=== PATIENT | female | born 1960 | race Caucasian/White ===

== ENCOUNTER → 2018-03-07 | Day surgery (SDC) | payer OTHER ==
[2018-03-02 09:52] VITALS: BMI 35.8
--- NOTE | 2018-03-05 13:19 | HP ---
DATE OF EXAM: 03/05/2018 REASON FOR ADMISSION: Left heart catheterization possible angioplasty, new onset of angina. HISTORY OF PRESENT ILLNESS: A 57-year-old female with past medical history significant for obesity, hypertension, hyperlipidemia, and diabetes. A stress test in 08/2017 was negative, but the patient complained of on walking, she developed angina, tightness in the throat and bilateral heaviness in the chest with minimal exertion and relieved by taking rest or taking sublingual nitroglycerin. Initially, the insurance refused, but on re-appealing insurance approved for the cardiac catheterization. PAST MEDICAL HISTORY: Significant for obesity, hypertension, and hyperlipidemia. SOCIAL HISTORY: Denies any smoking; denies any history of alcohol abuse. CURRENT MEDICATIONS: The patient is taking; Plavix 75 mg daily, metoprolol 200 mg daily, vitamin D2 50,000 units daily, Synthroid 200 mcg daily, glimepiride 4 mg daily, Januvia 25 mg daily, and lovastatin 80 mg daily. ALLERGIES: ALLERGY TO IODINE, ALLERGY TO AMOXICILLIN, ALLERGY TO CEPHALEXIN, AND ALLERGY TO POTASSIUM CLAVULANATE. RECENT CARDIAC WORKUP FOLLOWS: The patient had a stress test in that was essentially normal. Myocardial perfusion study, but the patient developed angina later on. REVIEW OF SYSTEMS: As per HPI. PHYSICAL EXAMINATION: As follows; VITAL SIGNS: Height of the patient 5 feet 2 inches, weight of the patient 196 pounds, body mass index 36 kg/m2, heart rate 62, and blood pressure 136/86. HEENT: PERRLA. Extraocular muscles intact. NECK: Supple. No carotid bruit or thyromegaly. CHEST: Clear to auscultation. HEART: S1, S2 regular. ABDOMEN: Soft. EXTREMITIES: Clubbing and cyanosis negative. IMPRESSION: New onset of angina, hypertension, diabetes, obesity, and multivessel coronary artery disease. RECOMMENDATION: Risks,benefits, and alternatives were discussed with the patient. The patient agreed for cardiac catheterization. We will await for blood test. When the blood test available, jaylene will load aspirin, Plavix and proceed for cardiac catheterization. Further recommendation after the cardiac catheterization. We will follow with you. Thank you Dr. Donaldson / Zuleika pryor for providing us the opportunity in taking care of the patient, Katalina Alexander. Britney Sahu MD [facility]
[~2018-03-07] MED LIST: DiphenhydrAMINE 50 mg/ml Inj ONE; Famotidine 20mg/50ml 20 MG/50 ML BAG IVPB ONE; Iohexol 350 MG/100 ML VIAL ONE; Iohexol 350mgl/ml 50 ML ONE; Lidocaine 2% Inj (20ml) ONE; Midazolam 2 MG/2 ML VIAL ONE; Phenylephrine 10 mg/ml Inj ONE; Sodium Chloride 0.9% 1,000 ML IV SCH
[2018-03-07 07:52] VITALS: TEMP 97.8; O2SAT 98
[2018-03-07 08:07] LABS: BASO # 0.01 K/mm3 (0.0-2.0); BASO % 0.2 % (0.0-3.0); EOS # 0.1 (0.0-0.7); EOS % 2.3 % (1.5-5.0); GRAN # 2.52 (1.4-6.5); GRAN % 41.4 % (50.0-68.0); HEMOGLOBIN 13.2 g/dL (12.0-16.0); LYMPH # 3.1 (1.2-3.4); LYMPH % 50.7 % (22.0-35.0); MEAN CELL VOLUME 82.8 fl (80.0-105.0); MEAN CORPUSCULAR HEMOGLOBIN 26.5 pg (25.0-35.0); MEAN PLATELET VOLUME 10.1 fl (7.0-11.0); MONO # 0.3 (0.1-0.6); MONO % 5.4 % (1.0-6.0); RBC 4.99 10^6/uL (3.5-6.1); RED CELL DISTRIBUTION WIDTH 14.9 % (11.5-14.5); WHITE BLOOD COUNT 6.1 10^3/uL (4.5-11.0)
[2018-03-07 08:15] LABS: BLOOD UREA NITROGEN 19 mg/dL (7-21); GFR NON-AFRICAN AMERICAN > 60; HDL CHOLESTEROL 36 mg/dL (29-60)
[2018-03-07 08:16] LABS: PARTIAL THROMBOPLASTIN TIME 25.1 Seconds (25.1-36.5); PROTHROMBIN TIME 11.5 SECONDS (9.4-12.5)
[2018-03-07 08:25] LABS: LDL CHOLESTEROL 134 mg/dL (0-129)
--- NOTE | 2018-03-07 09:30 | CARD ---
APPROVED REPORT Date of service: 03/07/2018 EKG Measurement Heart [id number] <Conclusion> Normal sinus rhythm Possible Inferior infarct, old No change
[2018-03-07 10:15] VITALS: RESP 18
--- NOTE | 2018-03-07 10:47 | CPOSTOP ---
CARDIOVASCULAR LAB POSTPROCEDURE NOTE DATE: 03/07/2018 PHYSICIAN: Dr. Marie Sahu. HELMINTHOLOGY TEACHER: SHANNAN Maynard. TYPE OF ANESTHESIA: Moderate conscious sedation, total 2 mg of Versed and 100 of fentanyl given periodically. Started 1 mg of Versed and 50 of fentanyl. PRE-PROCEDURE DIAGNOSES: Unstable angina, abnormal stress test, dyspnea on exertion and chest pain. PROCEDURE PERFORMED: Left heart catheterization. FINDINGS: Nonobstructive coronary artery disease. POST PROCEDURE CONDITION: The patients' condition is stable. VASCULAR ACCESS SITE: Right femoral artery. CLOSURE DEVICE: AngioSeal. TOTAL RADIATION DOSE: 3308.0 milligray unit. TOTAL FLUORO TIME: 1.3 minute. Britney Sahu MD
[2018-03-07 15:15] VITALS: BP 118/68; PULSE 75
--- NOTE | 2018-03-07 18:30 | CARD ---
APPROVED REPORT Date of service: 03/07/2018 Procedure(s) performed: Left Heart Catheterization HISTORY The patient is a 57 year-old female with a history of : most recent EF: 80%. (EF Method: RADIONUCLIDE), diabetes mellitus with oral treatment , previous diagnostic cath, tobacco history() : The patient is a former smoker , hypertension , dyslipidemia , Admitted for [facility] b/c of new onset of angina.. INDICATION The indication(s) include : unstable angina , chest pain, dyspnea. CASE TECHNIQUE The patient was brought electively to the Cardiac Catheterization Laboratory in a fasting state and was prepped and draped in a sterile manner. The right femoral groin was infiltrated with 2% Lidocaine subcutaneous anesthesia. A 6 Fr x 11 cm Veronika sheath was inserted into the right femoral artery without difficulty. Coronary angiography was performed using coronary diagnostic catheters. The left coronary system was accessed and visualized with a Diagnostic,6F JL4 CATH DXT 100 CM catheter. The right coronary system was accessed and visualized with a Diagnostic ,6F JR 4 CATH DXT 100 CM catheter. The left ventricle was accessed and visualized with a 6F PIGTAIL 145 CATH DXT 110 CM catheter. Left ventricular/Aortic Valve gradient assessed on pullback. Left ventriculogram was performed in ARELLANO projection. Closure device was deployed with a 6 Fr Angio-Seal without any complications. The patient tolerated the procedure well and there were no complications associated with the procedure. Vessel Analysis The patient's coronary anatomy is co-dominant. The left main coronary artery is a medium size vessel without significant stenosis. The left main bifurcates to the left anterior descending and circumflex. The left anterior descending artery is a medium size vessel with intimal irregularities and without significant stenosis. There is a 40% stenosis in the mid segment. The first diagonal branch is a medium size vessel with intimal irregularities and without significant stenosis. The circumflex artery is a medium size vessel with diffuse calcification noted throughout this vessel and without significant stenosis. There is a 40% stenosis in the ostial segment. The first obtuse marginal branch is a small size vessel with diffuse calcification noted throughout this vessel and without significant stenosis. The second obtuse marginal branch is a medium size vessel with diffuse calcification noted throughout this vessel and without significant stenosis. The left posterior descending artery is a medium size vessel with diffuse calcification noted throughout this vessel and without significant stenosis. The right coronary artery is a medium size vessel with diffuse calcification noted throughout this vessel and without significant stenosis. There is a 50% stenosis in the mid segment. The right posterior descending artery is a medium size vessel with diffuse calcification noted throughout this vessel and without significant stenosis. Left Ventricle The left ventricle is nomal in size with normal contractility. There was no cardiomyopathy. The left ventricular ejection fraction is estimated to be 65%. The left ventricular end diastolic pressure is 14-16 mmHg. There was no gradient across the aortic valve upon pullback. Conclusion Non Obstructive CAD. Moderate Diz in LAD, CX ,and RCA Preserved LV FX. EF-65%, EDP-14-16 mmof hg. Recommendations Aggressive Medical TherapyCardiac Risk Reduction Program Weight Loss Reduction Program CC; DRs. Home Paredes / Anika.
== END | disposition home or self-care (01) ==
LOC: CATH 07:16
PROVIDERS: ATTEND Internal Medicine Cardiovascular Disease
DX: I25.110 Atherosclerotic heart disease of native coronary artery with unstable angina pectoris (principal); I10 Essential (primary) hypertension; E78.5 Hyperlipidemia, unspecified; E11.9 Type 2 diabetes mellitus without complications; Z87.891 Personal history of nicotine dependence; R94.39 Abnormal result of other cardiovascular function study; R06.09 Other forms of dyspnea; E66.9 Obesity, unspecified; Z68.36 Body mass index [BMI] 36.0-36.9, adult
CPT/HCPCS: 36415; 80048; 80061; 85025; 85610; 85730; 86850; 86900; 93005; 93458; 99152; C1760; C1769 ×2; C2629; J1200; J1644; J2250; J2930; J3010; J7030; J7040; Q9967